=== PATIENT | male | born 1950 | race Caucasian/White ===

== ENCOUNTER → 2018-10-19 | Outpatient (CLI) | payer MEDICARE, OTHER ==
--- NOTE | 2018-10-20 09:08 | PCVCIMAG ---
APPROVED REPORT Study performed: 10/19/2018 07:57:47 EXAM: Comprehensive 2D, Doppler, and color-flow Echocardiogram Patient Location: Echo lab Status: routine BSA: 2.31 HR: 89 bpmBP: 130/80 mmHg Rhythm: NSR Other Information Study Quality: Adequate Risk Factors: Cardiac Risk Factors: HTN, Hyperlipidemia, DM Indications Diabetes Hypertension/HDD Elevated Calcium Score 2D Dimensions IVSd: 12.41 (7-11mm)LVOT Diam: 21.29 (18-24mm) LVDd: 39.55 mm PWd: 11.99 (7-11mm)Ascending Ao: 28.08 (22-36mm) LVDs: 32.79 (25-40mm) Left Atrium: 42.55 (27-40mm) Aortic Root: 28.65 mm LV Single Plane 4CH: 59.41 % LV Single Plane 2CH: 63.00 % Biplane EF: 61.9 % Volumes Left Atrial Volume (Systole) Single Plane 4CH: 39.22 mLSingle Plane 2CH: 31.55 mL LA ESV Index: 17.00 mL/m2 Aortic Valve AoV Peak Lavon.: 1.20 m/s AO Peak Gr.: 5.77 mmHg Mitral Valve E/A Ratio: 1.3 MV Decel. Time: 137.07 ms MV E Max Lavon.: 0.78 m/s MV A Lavon.: 0.62 m/s IVRT: 79.58 ms TDI E/Lateral E': 8.67E/Medial E': 11.14 Medial E' Lavon.: 0.07 m/s Lateral E' Lavon.: 0.09 m/s Pulmonary Valve PV Peak Gr.: 3.03 mmHg Pulmonary Vein P Vein S: 0.55 m/sP Vein A: 0.28 m/s P Vein D: 0.53 m/sP Vein A Dur.: 62.3 msec P Vein S/D Ratio: 1.04 Left Ventricle The left ventricle is normal size. There is normal LV segmental wall motion. There is normal left ventricular wall thickness. Left ventricular systolic function is normal. The left ventricular ejection fraction is within the normal range. LVEF is 55-60%. The left ventricular diastolic function is normal. Right Ventricle The right ventricle is normal size. The right ventricular systolic function is normal. Atria The left atrium size is normal. The right atrium size is normal. Aortic Valve The aortic valve is normal in structure. No aortic regurgitation is present. There is no aortic valvular stenosis. Mitral Valve Minimal mitral annular calcification Mild mitral regurgitation. No evidence of mitral valve stenosis. Tricuspid Valve The tricuspid valve is normal in structure. There is no tricuspid valve regurgitation noted. Pulmonic Valve The pulmonary valve is normal in structure. There is no pulmonic valvular regurgitation. Great Vessels The aortic root is normal in size. IVC is normal in size and collapses >50% with inspiration. Pericardium There is no pericardial effusion. <Conclusion> Left ventricular systolic function is normal. There is normal LV segmental wall motion. LVEF is 55-60%. Normal diastolic function The aortic valve is normal in structure. No aortic regurgitation or stenosis Minimal mitral annular calcification. Mild mitral regurgitation. Pulmonary artery pressure could not be reliably ascertained There is no pericardial effusion.
--- NOTE | 2018-10-21 01:13 | PCVCIMAG ---
APPROVED REPORT Imaging Protocol: Rest Tc-99m/Stress Tc-99m 1 day Study performed: 10/19/2018 09:14:43 Indication: CAD , Dyspnea Patient Location: Out-Patient Stress Nurse: Radha Powell RN, Sita Huynh RN [place] Tech:Anni JAVIER WoodwardMT Ht: 5 ft 9 in Wt: 260 lbs BSA: 2.31 m2 HR: 91 bpm BP: 168/77 mmHg BMI: 38.39 Rhythm: Normal Sinus Rhythm Medical History Medical History: HTN, Hyperlipidemia Medications: Actos, Benazepril, Zetia, ASA, Metformin, Gabapentin Allergies: No known drug allergies Cardiac Risk Factors: Age, DM, CAD Previous Cardiac Procedures: Calcium Score 445 Pretest Chest Pain Characteristics: No chest pain Exercise History: Physically active Resting Data Rest SPECT myocardial perfusion imaging was performed in supine position 45 minutes following the intravenous injection of 10.2 mCi of Tc-99m Sestamibi. Time of rest injection: 839 Date: 10/19/2018 Administration Route: IV Administration Site: Left AC Exercise Stress At peak stress, the patient was injected intravenously with 34.6mCi of Tc-99m Sestamibi. Time of stress injection: Date: 10/19/2018 Administration Route: IV Administration Site: Left AC Patient continued to exercise for 1 minute(s). Gated Stress SPECT was performed 45 minutes after stress injection. The images were gated to evaluate regional wall motion and calculate left ventricular ejection fraction. Stress Test Details Stress Test: Exercise stress testing was performed using a Domingo protocol. HRMax Heart Rate (APMHR): 151 bpm Resting HR: 91 bpmTarget HR (85% APMHR): 128 bpm Max HR Achieved: 166 bpm % of APMHR: 109 Recovery HR: 104 bpm HR response to stress: Normal HR response to stress BP Resting BP: 168/77 mmHg Max BP: 220/90 mmHg Recovery BP: 160/72 mmHg BP response to stress: Normal blood pressure response to stress. ECG Resting ECG: Sinus Rhythm Stress ECG: Sinus Tachycardia ST Change: Upsloping ST depression Maximum ST Deviation: 0.5 mm Arrhythmia: VPC's Recovery ECG: Sinus Tachycardia Recovery ST Change: None Recovery ST Deviation: 0 mm Clinical Reason for Termination: Dyspnea, Fatigue Stress Symptoms: Dyspnea Exercise duration: 7 min 00 sec Exercise capacity: 10.10 METs Overall Exercise Capacity for Age: Average Scale: Active Angina Score: None Symptoms resolved during recovery. Stress ECG Conclusion 1. Subjectively negative for ischemia 2. Electrocardiographically negative for ischemia 3. Average functional capacity [place] Treadmill Score is 4.5 which is Moderate risk. Study Data Post stress, the left ventricular ejection was 73%.. SSS: 0 SRS: 0 SDS: 0 TID = 0.94. Perfusion There is a large area of moderately reduced uptake in the entire segment of the inferior wall which is seen on the stress images as well as the resting images. Wall Motion Normal left ventricular wall motion. Nuclear Conclusion ECG Findings: negative for ischemia Clinical Findings: negative for ischemia Nuclear Findings: negative for ischemia Exercise Capacity: average 1. Low risk study <Conclusion> 1. Subjectively negative for ischemia 2. Electrocardiographically negative for ischemia 3. Average functional capacity
== END | disposition home or self-care (01) ==
LOC: PCVCIMAG 07:49
PROVIDERS: ATTEND Internal Medicine
DX: I34.0 Nonrheumatic mitral (valve) insufficiency (principal); I25.10 Atherosclerotic heart disease of native coronary artery without angina pectoris; R06.00 Dyspnea, unspecified; E11.9 Type 2 diabetes mellitus without complications; I10 Essential (primary) hypertension; E78.5 Hyperlipidemia, unspecified; R93.1 Abnormal findings on diagnostic imaging of heart and coronary circulation
CPT/HCPCS: 78452; 93017; 93306; A9500